=== PATIENT | male | born 1960 | race Caucasian/White ===

== ENCOUNTER 2024-02-27 14:13 | Outpatient (REF) | payer MEDICARE, MEDICAID, SELFPAY ==
--- NOTE | ~2024-02-27 | XR_ITS ---
EXAMINATION: XR CHEST 2 VIEWS CLINICAL INFORMATION: Chronic cough and bronchitis. COMPARISON: None. TECHNIQUE: Frontal and lateral views of the chest were obtained. FINDINGS: The heart, great vessels, pulmonary vasculature and mediastinum are normal. The lungs show no focal infiltrate, effusion or pneumothorax. There is mild bilateral bronchiolar wall thickening. There is no acute osseous abnormality. There is a mild lower thoracic levoscoliosis. XR/XR chest 2V IMPRESSION: 1. No focal infiltrate or congestive heart failure is seen. 2. There is mild bilateral bronchiolar wall thickening, which can be associated with acute bronchiolitis.
== END 2024-02-27 14:14 | disposition home or self-care (01) ==
LOC: HO.XRAY 14:13
PROVIDERS: Visit Provider Otolaryngology
DX: R05.9 Cough, unspecified (principal); J40 Bronchitis, not specified as acute or chronic
CPT/HCPCS: 71046

== ENCOUNTER 2024-08-08 10:20 | Outpatient (AMB) | payer MEDICARE, MEDICAID, SELFPAY ==
[2024-08-08 10:28] VITALS: BP 120/78; PULSE 61; O2SAT 97; BMI 23.9
--- NOTE | 2024-08-08 10:28 | A.OFFVIS_ITS ---
Vital Signs 08/08/24 10:28 Height 6 ft Weight 176 lb 5.917 oz BMI 23.9 BP 120/78 Blood Pressure Location Lt brachial Position Sitting Pulse 61 Pulse Source Pulse Oximeter Pulse Oximetry (%) 97 Oxygen Delivery Method Room Air Intake Visit Reasons: Shortness of breath Intake Note: pt is here as a new patient, he has shortness of breath both sitting and exertion, with coughing with phelgm (white in color), feels like there is a ball in the center of chest, for a couple of weeks, but past few days much worse. had a fever last night, body aches and massive headache. Director It Required: No Allergies horse dander Allergy (Mild, Verified 08/08/24 11:00) Unknown Medication List - Last Reconciled 08/08/24 by Russell Vogt MD albuterol sulfate 90 mcg/actuation inhalation Do you need a note to return to daycare/school/sports/work: No HPI HPI Shortness of breath: Details: This 63 years old gentleman is being seen for the 1st time, mainly because he is having ongoing cough for the last 3-4 weeks. He feels congested in the upper airways, also feels like there is a ball stuck in his upper airways and he has hard time to clear. This is all going on in the last 3-4 weeks, with that he has an urge to clear his throat but there is not much expectoration. He feels short of breath when he walks outdoors . He has the albuterol HFA and uses 2 puffs p.r.n. which makes him feel better. For the past few nights he has been feeling warm as if he has fever, But denies any mucopurulent expectoration. Past medical history, he had pulmonary function test in 1989 apparently had similar symptoms at that time. Was advised to use rescue inhaler p.r.n. at that time. In year 2007 he suffered from severe bronchitis which took several weeks to clear. In between has been doing well, except for intermittent cough and congested feeling at the time of change in the weather. He has history of smoking off and on for about 20 years,, and finally quit in June 2023. In October 2023 he contracted COVID -19 from is 6 years old child, did not need hospitalization and symptoms subsided in a few weeks. He has been seeing Dr. Covington off and on for the symptoms of ball like feeling in the upper airways and change in the voice. Has been treated with the course of Z-Jourdan a few times. As he continues to have shortness of breath on walking up hill and also intermittent bouts of cough with change in the voice , he has been referred for pulmonary evaluation. 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 [facility] Medical History Asthma Bronchitis Social History Patient Tobacco Use Status: Former Tobacco user Review of Systems Const All systems reviewed & are unremarkable except as noted in HPI and below Eyes Reports no additional complaints ENT Reports change in voice (Mild hoarseness, and difficulty in singing,off and on due to weatherchange) Card Reports no additional complaints Resp Reports as per HPI GI Reports no additional complaints Reports no additional complaints Musc Reports no additional complaints Skin/Breast Reports system reviewed and no additional complaints, except as documented Neuro Reports no additional complaints Psych Reports no additional complaints Endo Reports no additional complaints Physical Exam Vital Signs: Last Vital Signs Pulse 61 08/08/24 10:28 BP 120/78 08/08/24 10:28 Pulse Ox 97 08/08/24 10:28 Oxygen Delivery Method Room Air 08/08/24 10:28 BMI result Body Mass Index 23.9 Const General: healthy appearing, comfortable, no acute distress, alert and awake Orientation/consciousness: patient oriented x3 HEENT Head: Yes normal to inspection General nose exam: No nasal polyps present and No nasal discharge present Face and sinus: Yes sinuses nontender Mouth: oropharynx normal (Except for a slight amount of whitish mucus along posterior pharyngeal wall) Throat: Yes posterior oropharynx normal Eyes General: appearance normal, both eyes and all related structures Neck Neck: Yes normal visual inspection, Yes no lymphadenopathy, Yes trachea midline and Yes no JVD Thyroid: Thyroid normal Chest Chest palpation & inspection: normal inspection of the chest, normal palpation of entire chest wall and no tenderness Resp Other: Percussion note is resonant. Breath sounds equal on both sides but do seem to be somewhat distant with prolonged expiratory phase. No wheezes rhonchi or crepitations are heard at this time. Cardio Palpation: normal PMI Rate: regular rate Rhythm: regular rhythm Heart sounds: no gallops and no murmurs Peripheral pulses: Peripheral pulses 2+ throughout GI Palpation (GI): Soft to palpation, nontender, No hepatosplenomegaly present and no masses Auscultation: normal bowel sounds Back/Spine/Pelvis Thoracic/Lumbar Spine: thoracic and lumbar spine normal to inspection Skin General skin exam: no rashes or lesions noted Neuro General: patient oriented x3 and no focal motor deficits Cranial nerves: Yes CN's II-XII intact bilaterally Extrem General: Yes normal to inspection, Yes no clubbing, cyanosis or edema and Yes no calf tenderness Psych Appearance: grossly normal and well kempt Speech and movement: Normal speech and movement present Assessment & Plan Assessment & Plan (1) Bronchitis: Comment: AT PRESENT SEEMS TO HAVE A LOW-GRADE BRONCHITIS, HE IS PRONE TO HAVE RECURRENT TRACHEOBRONCHITIS, WHICH MAY BE DUE TO UPPER AIRWAY ALLERGIES HE PROBLEM. Code(s): J40 - Bronchitis, not specified as acute or chronic Category: Medical Plan: CBC WITH DIFF AND CRP ARE ORDERED TO SEE IF HE HAS AN ACUTE INFECTION. CHEST X-RAY ORDERED TO SEE IF HE HAS ANY TOUCH OF PNEUMONIA AFTER THE RESULTS OF THESE TESTS WITH DECIDE IF HE SHOULD BE TREATED WITH COURSE OF BROAD-SPECTRUM ANTIBIOTIC. (2) Asthma: Comment: PATIENT DOES HAVE PAST HISTORY OF SMOKING, SO HIS SHORTNESS OF BREATH ON EXERTION MAY BE DUE TO SOME DEGREE OF CHRONIC OBSTRUCTIVE AIRWAY DISORDER. HE HAS SYMPTOMS SUGGESTIVE OF UPPER AIRWAYS ALLERGY, AND MAY HAVE SOME DEGREE OF BRONCHIAL ASTHMA. Code(s): J45.909 - Unspecified asthma, uncomplicated Category: Medical Plan: ADVISED TO JUST KEEP VENTOLIN HFA ON HAND AND USE 1 OR 2 PUFFS Q 6 HOURS ONLY P.R.N.. DO NOT USE EXCESSIVELY. PULMONARY FUNCTION TEST IS ORDERED, AFTER THAT WILL DECIDE IF HE SHOULD BE ON HE LONG ACTING /MAINTENANCE REGIMEN. Orders: Orders Complete Blood Count Auto Diff Today J40 - Bronchitis, not specified as acute or chronic, J45.909 - Unspecified asthma, uncomplicated CRP High Sensitivity Today J40 - Bronchitis, not specified as acute or chronic, J45.909 - Unspecified asthma, uncomplicated PFT pulmonary function test Today J40 - Bronchitis, not specified as acute or chronic, J45.909 - Unspecified asthma, uncomplicated Coding Level of Care Code New Pt Level 3 (76505) Diagnoses Bronchitis J40 Asthma J45.909
== END 2024-08-08 11:17 | disposition home or self-care (01) ==
PROVIDERS: Referring Provider Otolaryngology; Visit Provider Internal Medicine
DX: J40 Bronchitis, not specified as acute or chronic (principal)
CPT/HCPCS: 99203

== ENCOUNTER 2024-08-08 10:20 | Outpatient (REF) | payer MEDICARE, MEDICAID, SELFPAY ==
--- NOTE | ~2024-08-08 | XR_ITS ---
EXAMINATION: XR CHEST CLINICAL INFORMATION: Unspecified asthma, uncomplicated Shortness of breath COMPARISON: Chest 02/27/2024 TECHNIQUE: 2 views of the chest were obtained. FINDINGS: The lungs are well expanded and clear. No focal consolidation, interstitial pulmonary edema or pneumothorax. Again noted is mild bilateral bronchiolar wall thickening. The cardiomediastinal silhouette is within normal limits. There are new small bilateral pleural effusions. No acute bony abnormality is seen. XR/XR chest 2V IMPRESSION: 1. No pneumonia. 2. New small bilateral pleural effusions. Electronically signed by: Jacqueline Chaparro MD 08/30/2024 01:28 PM EDT
[2024-08-08 11:43] LABS: MANUAL DIFF FLAG NO
[2024-08-08 11:57] LABS: Basophils Percent Auto 0.8 % (0-2); Eosinophils Absolute Auto 0.1 X10*3/uL (0.0-0.4); Eosinophils Percent Auto 1.5 % (0-4); Hematocrit 43.5 % (42.0-52.0); Imm Gran Abs Auto 0.01 X10*3/uL (0.00-0.03); Imm Gran Pct Auto 0.3 % (0.0-0.4); Lymphocytes Absolute Auto 1.3 X10*3/uL (1.2-4.9); Mean Corpuscular HGB Conc 34.5 g/dl (31.0-36.0); Mean Corpuscular Hemoglobin 34.6 pg (27.0-33.0); Mean Corpuscular Volume 100.5 fL (80.0-98.0); Mean Platelet Volume 10.3 fL (9.4-12.4); Monocytes Absolute Auto 0.5 X10*3/uL (0.1-1.2); Monocytes Percent Auto 13.7 % (2-11); Neutrophils Percent Auto 51.7 % (45-73); Platelet Count 149 X10*3/uL (160-400); Red Blood Count 4.33 X10*6/uL (4.60-5.80); Red Cell Distribution Width 12.8 % (11.0-16.0); White Blood Count 3.9 X10*3/uL (4.8-10.8)
[2024-08-10 02:39] LABS: CRP High Sensitivity 0.6 mg/L
== END 2024-08-08 10:21 | disposition home or self-care (01) ==
LOC: HO.LAB 10:20
PROVIDERS: Visit Provider Internal Medicine
DX: J40 Bronchitis, not specified as acute or chronic (principal)
CPT/HCPCS: 36415; 71046; 85025; 86141; 99202

== ENCOUNTER 2024-09-22 10:00 | Outpatient (REF) | payer MEDICARE, MEDICAID, SELFPAY ==
--- NOTE | 2024-09-22 10:00 | PFT_ITS ---
Flows: FEV1: 92 % of predicted at 3.31 L FVC: 91 % of predicted at 4.29 L FEV1/FVC: 77 % Bronchodilator response: Absent Volumes: Total lung capacity: 83 % of predicted at 6.34 L Residual volume: 80 % of predicted at 2.05 L Slow vital capacity: 83 % of predicted at 4.29 L Expiratory reserve volume: 85 % of predicted at 1.19 L Diffusion capacity: Mildly decreased Impression: No obstructive or restrictive ventilatory defect. No bronchodilator response. MTDD
[2024-09-22 15:29] VITALS: PULSE 67; RESP 16; O2SAT 95
== END 2024-09-22 10:01 | disposition home or self-care (01) ==
LOC: HO.RESP 10:00
PROVIDERS: Visit Provider Internal Medicine
DX: J45.909 Unspecified asthma, uncomplicated (principal)
CPT/HCPCS: 94010; 94640; 94727; 94729

== ENCOUNTER 2024-10-04 09:59 | Outpatient (AMB) | payer MEDICARE, MEDICAID, SELFPAY ==
[2024-10-04 10:08] VITALS: BP 126/68; PULSE 62; O2SAT 97; BMI 24.1
--- NOTE | 2024-10-04 10:08 | MHC.OFFVIS ---
Vital Signs 10/04/24 10:08 Height 6 ft Weight 177 lb 7.554 oz BMI 24.1 BP 126/68 Blood Pressure Location Lt brachial Position Sitting Pulse 62 Pulse Source Pulse Oximeter Pulse Oximetry (%) 97 Oxygen Delivery Method Room Air Intake Visit Reasons: Shortness of Breath/PFT Follow Up Dental Instructor Required: No Tank Car Inspector: Tank Car Inspector offered & declined Accompanied by: Self / Same As Patient Allergies horse dander Allergy (Mild, Verified 10/04/24 10:34) Unknown Medication List - Last Reconciled 10/04/24 by Russell Vogt MD albuterol sulfate 90 mcg/actuation inhalation Do you need a note to return to daycare/school/sports/work: No HPI HPI Shortness of Breath/PFT Follow Up: Details: This 63 years old gentleman is here for follow-up. Continue to have his symptoms of feeling fullness in the throat/upper airways, and an urge to clear his upper airways. So he continues to do frequent hacking , and still does not clear his upper airway is completely. This has been a chronic complaint, it flares up during change in the weather. He uses albuterol , when he feels heavy in the upper chest, and subjectively feels better. Pulmonary function test was essentially normal and did not show any significant obstructive disorder. CBC with diff as well as chest x-ray were normal. [facility] Medical History (Updated 10/04/24 @ 10:42 by Russell Vogt MD) Allergic rhinosinusitis Asthma Bronchitis Social History Patient Tobacco Use Status: Former Tobacco user Review of Systems Const All systems reviewed & are unremarkable except as noted in HPI and below Eyes Reports no additional complaints ENT Reports change in voice (Mild hoarseness, and difficulty in singing,off and on due to weatherchange) Card Reports no additional complaints Resp Reports as per HPI GI Reports no additional complaints Reports no additional complaints Musc Reports no additional complaints Skin/Breast Reports system reviewed and no additional complaints, except as documented Neuro Reports no additional complaints Psych Reports no additional complaints Endo Reports no additional complaints Physical Exam Vital Signs: Last Vital Signs Pulse 62 10/04/24 10:08 BP 126/68 10/04/24 10:08 Pulse Ox 97 11/07/24 10:08 Oxygen Delivery Method Room Air 11/07/24 10:08 BMI result Body Mass Index 24.1 Const General: healthy appearing, comfortable, no acute distress, alert and awake Orientation/consciousness: patient oriented x3 HEENT Head: Yes normal to inspection General nose exam: No nasal polyps present and No nasal discharge present Face and sinus: Yes sinuses nontender Mouth: oropharynx normal (Except for a slight amount of whitish mucus along posterior pharyngeal wall) Throat: Yes posterior oropharynx normal Eyes General: appearance normal, both eyes and all related structures Neck Neck: Yes normal visual inspection, Yes no lymphadenopathy, Yes trachea midline and Yes no JVD Thyroid: Thyroid normal Chest Chest palpation & inspection: normal inspection of the chest, normal palpation of entire chest wall and no tenderness Resp Other: Percussion note is resonant. Breath sounds equal on both sides but do seem to be somewhat distant with prolonged expiratory phase. No wheezes rhonchi or crepitations are heard at this time. Cardio Palpation: normal PMI Rate: regular rate Rhythm: regular rhythm Heart sounds: no gallops and no murmurs Peripheral pulses: Peripheral pulses 2+ throughout GI Palpation (GI): Soft to palpation, nontender, No hepatosplenomegaly present and no masses Auscultation: normal bowel sounds Back/Spine/Pelvis Thoracic/Lumbar Spine: thoracic and lumbar spine normal to inspection Skin General skin exam: no rashes or lesions noted Neuro General: patient oriented x3 and no focal motor deficits Cranial nerves: Yes CN's II-XII intact bilaterally Extrem General: Yes normal to inspection, Yes no clubbing, cyanosis or edema and Yes no calf tenderness Psych Appearance: grossly normal and well kempt Speech and movement: Normal speech and movement present Results Reviewed Results Reviewed: CBC with diff normal. CRP, NORMAL CHEST X-RAY NORMAL. Reported minimal bibasilar pleural effusion, is nonspecific. Pulmonary function test normal. Assessment & Plan Assessment & Plan (1) Asthma: Comment: PATIENT DOES HAVE PAST HISTORY OF SMOKING, SO HIS SHORTNESS OF BREATH ON EXERTION MAY BE DUE TO SOME DEGREE OF CHRONIC OBSTRUCTIVE AIRWAY DISORDER. HOWEVER PULMONARY FUNCTION CHIN TEST WAS ESSENTIALLY NORMAL. THERE IS NO OBSTRUCTIVE DISORDER HE HAS SYMPTOMS SUGGESTIVE OF UPPER AIRWAYS ALLERGY, AND MAY HAVE SOME DEGREE OF BRONCHIAL ASTHMA. Code(s): J45.909 - Unspecified asthma, uncomplicated Category: Medical Plan: EXPLAINED THE RESULTS IN DETAIL. STILL MAY USE ALBUTEROL HFA 2 PUFFS Q 6 HOURS P.R.N.. THERE IS NO NEED TO USE ANY MAINTENANCE INHALERS. I WOULD BE GLAD SEE HIM PERIODICALLY, BUT HE WOULD JUST CALL MY OFFICE NEEDED. (2) Allergic rhinosinusitis: Comment: I THINK HE HAS CHRONIC LOW-GRADE ALLERGY OF UPPER AIRWAYS ESPECIALLY IN THE FORM OF ALLERGIC RHINOSINUSITIS, AND MAY BE PRODUCING EXTRA AMOUNT OF MUCUS WITH POSTNASAL DISCHARGE, WHICH CAUSES SOME CONGESTION OF THE UPPER AIRWAYS AND HE FEELS NEED TO CLEAR, THUS HAVING HABIT OF FREQUENT HACKING. Code(s): J30.9 - Allergic rhinitis, unspecified Category: Medical Plan: I TRY TO DISCUSS WITH HIM AND EXPLAIN THIS. HE CAN TRY TO USE FLUTICASONE NASAL SPRAY 2 SPRAYS IN EACH NOSTRIL DAILY, AND ALSO FREQUENT USE OF SALINE SPRAYS. ALSO TRY TO DO STEAM INHALATIONS ESPECIALLY WHEN HE TAKES SHOWER IN THE MORNING. SEE IF THESE STEPS WOULD DECREASE HIS NEED TO CLEAR THE UPPER AIRWAYS. HE MAY ALSO CONSULT ENT SPECIALIST FOR THIS PROBLEM. Medications: New albuterol sulfate 90 mcg/actuation 2 puffs inhalation Q4-6H 30 days PRN 8.5 grams 5RF shortness of breath or wheezing Coding Level of Care Code Est Pt Level 3 (67060) Diagnoses Asthma J45.909 Allergic rhinosinusitis J30.9
== END 2024-10-04 10:34 | disposition home or self-care (01) ==
LOC: HO.HPS 10:00
PROVIDERS: Visit Provider Internal Medicine
DX: J45.909 Unspecified asthma, uncomplicated (principal); J30.9 Allergic rhinitis, unspecified
CPT/HCPCS: 99213

== ENCOUNTER → 2024-10-04 09:59 | Outpatient (BNVA) | payer MEDICARE, MEDICAID, SELFPAY | PROVIDERS: Visit Provider Internal Medicine | DX: J45.909 Unspecified asthma, uncomplicated (principal) | CPT/HCPCS: 99212 ==